=== PATIENT | male | born 1970 | race Two or more races ===

== ENCOUNTER 2023-08-18 05:41 | Emergency (ER) | payer OTHER ==
[~2023-08-18] VITALS: Ht 160 cm; Wt 59.0 kg
[2023-08-18 07:42] LABS: HEMATOCRIT 45.1 % (39.0-48.0); HEMOGLOBIN 15.8 g/dL (13-16.00); MEAN CELL VOLUME 82.3 fL (80.0-100.00); MEAN CORPUSCULAR HEMOGLOBIN 28.8 pg (27.00-32.0); PLATELET COUNT 179 K/uL (150-450); RED BLOOD COUNT 5.48 M/uL (4.00-6.00); RED CELL DISTRIBUTION WIDTH 13.4 % (11.5-14.5)
[2023-08-18] MEDS ORDERED: TUSNEL LIQUID178 ML PO (07:45)
[2023-08-18] MEDS ORDERED: ZITHROMAX500 MG PO (07:45)
[2023-08-18] MEDS ORDERED: MEDROLPACK PO (07:45)
== END 2023-08-18 08:03 | disposition home or self-care (01) ==
LOC: ER 05:41
PROVIDERS: General Practice
DX: J10.1 Influenza due to other identified influenza virus with other respiratory manifestations (principal)